=== PATIENT | male | born 1995 | race Two or more races ===

== ENCOUNTER 2022-12-04 16:38 | Emergency (ER) | payer OTHER ==
[~2022-12-04] VITALS: Ht 188 cm; Wt 90.9 kg
[2022-12-04 16:42] VITALS: BP 138/87; PULSE 110; RESP 21; TEMP 98.9
[2022-12-04] MEDS ORDERED: LIDOCAINE 1% 10 ML VIAL SQ ONE (17:45)
[2022-12-04] MEDS ORDERED: BACITRACIN 0.9 GM PACKET OINTMENT TP ONE (18:00)
[2022-12-04] MEDS ORDERED: CEPH-558 PO (18:07)
== END 2022-12-04 18:23 | disposition home or self-care (01) ==
LOC: EMS 16:38
DX: S01.112A Laceration without foreign body of left eyelid and periocular area, initial encounter (principal); Z98.890 Other specified postprocedural states; V00.131A Fall from skateboard, initial encounter; Y93.89 Activity, other specified; Y92.89 Other specified places as the place of occurrence of the external cause; Y99.8 Other external cause status
CPT/HCPCS: 99284; 12051; J3490